=== PATIENT | male | born 1955 | race African-American/Black ===

== ENCOUNTER 2016-12-02 21:30 | Inpatient (IN) | payer MEDICAID ==
[2016-12-02] MEDS ORDERED: Aspirin 81mg Chewable Tab PO STA (21:57)
[2016-12-02] MEDS ORDERED: Aspirin 81mg Chewable Tab ONE (22:24)
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
[2016-12-02] MEDS ORDERED: NITROGLYCERIN SPRAY 4.9 GM SL STA (22:47)
[2016-12-02] MEDS ORDERED: NITROGLYCERIN SPRAY 4.9 GM SL ONE (23:13)
[2016-12-02 23:59] LABS: % EOSINOPHILS 1.6 % (0.0-5.0); % LYMPHOCYTES 28.8 % (20.0-50.0); % MONOCYTES 6.3 % (2.0-10.0); % NEUTROPHILS 62.3 % (40.0-80.0); HEMATOCRIT 31.4 % (39.0-49.0); HEMOGLOBIN 9.9 gm/dL (13.2-17.3); MEAN CELL VOLUME 73.9 fl (80-99); MEAN CORPUSCULAR HEMOGLOBIN 23.3 pg (26.0-30.0); MEAN CORPUSCULAR HGB CONC 31.6 pg (28.0-36.0); MEAN PLATELET VOLUME 6.9 fl; NEUTROPHILE ABSOLUTE 3.7 Th/cmm (1.8-8.0); PLATELET COUNT 304 Th/cmm (150-400); RED BLOOD COUNT 4.25 Mil/cmm (4.30-5.70); RED CELL DISTRIBUTION WIDTH 21.2 % (11.5-20.0); WHITE BLOOD COUNT 6.1 Th/cmm (4.8-10.8)
[2016-12-03 00:06] LABS: ALB/GLOB RATIO 1.2 (1.0-1.8); ALKALINE PHOSPHATASE 162 U/L (34-104); ANION GAP 11.8 (7.0-16.0); BILIRUBIN,TOTAL 0.3 mg/dL (0.3-1.0); BUN - UREA NITROGEN 13 mg/dL (7-25); CALCIUM SERUM 9.3 mg/dL (8.6-10.3); CARBON DIOXIDE 24.7 mEq/L (21.0-31.0); CHLORIDE 104 mEq/L (98-107); GLUCOSE 200 mg/dL (70-105); POTASSIUM SERUM 3.5 mEq/L (3.5-5.1); SGOT 14 U/L (13-39); SGPT/ALT 8 U/L (7-52); SODIUM SERUM 137 mEq/L (136-145)
[2016-12-03 07:08] LABS: CHOLESTEROL 100 mg/dL (<200); TRIGLYCERIDES 168 mg/dL (<150)
[2016-12-03] MEDS ORDERED: Pneumococcal Vaccine 0.5 mL Vial IM ONE (09:00)
[2016-12-03] MEDS ORDERED: Ferrous Sulfate 325 MG TAB PO SCH (09:00)
[2016-12-03] MEDS: Aspirin 81mg Chewable Tab PO SCH (10:02)
[2016-12-03] MEDS: Atorvastatin Calcium 10 MG TAB PO SCH (10:02)
[2016-12-03] MEDS: Pantoprazole 40 mg EC Tab PO SCH (10:03)
[2016-12-03 10:52] LABS: ABG SOURCE Arterial; BE(B) 2.1 mmol/L (-3.0-3.0); HCO3 25.3 mmol/L (20.0-26.0); pH 7.48 (7.35-7.45)
[2016-12-03 10:53] LABS: FIO2 21
[2016-12-03] MEDS ORDERED: VTE Chemical Prophylaxis Screen/Admission MC PRN (11:52)
--- NOTE | 2016-12-03 11:58 | Diagnostic Imaging Report ---
Portable chest x-ray HISTORY: Pain The heart size appears generous. Cardiac pacemaker lead wires project over the right atrium and right ventricle. No acute focal pulmonary processes. Surgical suture material noted over the mid chest. IMPRESSION: 1. No acute pulmonary processes 2. Cardiac pacemaker placement along with surgical changes
--- NOTE | 2016-12-03 12:02 | Diagnostic Imaging Report ---
Left lower extremity Doppler venous ultrasound exam HISTORY: Pain/swelling Sonographic sector images were obtained through the deep venous systems of the left leg. Associated Doppler data was obtained. The exam demonstrates patency of the common femoral, superficial femoral, popliteal, and posterior tibial veins. Specifically, no thrombus is seen. There are normal compressibility and augmentation responses. IMPRESSION: Negative exam for deep vein thrombophlebitis.
[2016-12-03] MEDS: Ferrous Sulfate 325 MG TAB PO SCH ×2 (14:30→17:31)
[2016-12-03] MEDS: Morphine Sulfate 4 mg/mL 1mL Syr IVP PRN ×2 (17:32→23:50)
--- NOTE | 2016-12-04 01:41 | Admit Criteria Form ---
Admit Criteria Forms - Admit Criteria Diagnosis: CARDIOLOGY GRG Clinical Indications for Admission to Inpatient Care ( Place 'X' for any and all applicable criteria): Hospital admission is needed for appropriate care of the patient because of ANY ONE of the following (1): [ ] I. Hemodynamic instability as indicated by ALL of the following (1)(2)(3) (4)(5) [ ]a) Vital signs or other findings not as expected for chronic patient condition or baseline [ ]b) Instability indicated by ANY ONE of the following: [ ]i) Hypotension [ ]ii) Symptomatic Tachycardia unresponsive to treatment ( e.g., analgesia, fluids, sedation as indicated) [ ]iii) Inadequate perfusion indicated by ANY ONE of the following: [ ] 1) Lactic acidosis (> 2 mmol/L) [ ] 2) New abnormal capillary refill (> 3 seconds) [ ] 3) Reduced urine output [ ] 4) New altered mental status [ ]iv) Orthostatic vital sign changes unresponsive to treatment (e.g., fluids) [ ]v) IV inotropic or vasopressor medication required to maintain adequate blood pressure or perfusion [ ] II. Severe heart failure as indicated by ANY ONE of the following(17)(18) [ ]a) Respiratory distress [ ]b) Hypotension [ ]c) Anasarca (refractory to outpatient therapy) [ ]d) Cardiac arrhythmias of immediate concern [ ]e) Myocardial ischemia [ ] III. Cardiac arrhythmias or findings of immediate concern indicated by ANY ONE of the following (19)(20): [ ] a) Heart rhythms that are inherently dangerous or unstable indicated by ANY ONE of the following (21)(22)(23): [ ] i) Resuscitated ventricular fibrillation or cardiac arrest [ ] ii) Ventricular escape rhythm [ ] iii) Sustained ventricular tachycardia (30 seconds or more of ventricular rhythm at greater than 100 beats per minute) [ ] iv) Nonsustained ventricular tachycardia and ANY ONE of the following: [ ] 1) Suspected cardiac ischemia as cause or consequence of ventricular tachycardia [ ] 2) In setting of acute myocarditis [ ] b) Unstable cardiac conduction defects indicated by ANY ONE of the following(23)(24)(25) [ ] i) Type II second-degree atrioventricular block [ ]ii) Third-degree atrioventricular block [ ]iii) New-onset left bundle branch block with suspected myocardial ischemia [ ]c) Any heart rhythm and ANY ONE of the following (21)(22)(26)(27) (28) [ ] i) Continuous long-term ECG monitoring needed (e.g., initiation of drug requiring monitoring for more than 24 hours) [ ] ii) Patient has automatic implanted cardioverter defibrillator that is repeatedly firing, malfunctioning, or in need of immediate adjustment of settings beyond the scope of ambulatory or observation care [ ]d) Heart rhythms of concern due to ANY ONE of the following: [ ] i) Hypotension [ ] ii) Respiratory distress [ ] iii) Association with other significant symptoms (e.g., bradycardia with syncope or ongoing dizziness, supraventricular tachycardia with chest pain (14)(15)(17) [ ] IV. Monitoring for cardiac contusion beyond the scope of observation care needed [A](30)(31)(32) [ ] V. Surgical or device complication (e.g., valve replacement complication , pacemaker dysfunction) (35)(41)(44)(45)(46) [ ] . Inpatient palliative care needed. [B](49) Also use Inpatient Palliative Care Criteria [ ] VII. Nonbacterial thrombotic (marantic) endocarditis (36)(43)(47)(48) [X ] VIII. Cardiology condition, symptom, or finding for which emergency and observation care has failed or are not considered appropriate. [ ] IX. Acute valvular disease requiring inpatient as indicated by ANY ONE of the following (41) [ ]a) Acute valvular regurgitation (42) [ ]b) Noninfectious valvulitis (43) [ ]c) Obstructive valve thrombosis [ ]d) Paravalvular leak [ ]e) Other significant valvular disorder remaining after emergency or observation level of care (as appropriate) [ ]X. Pericardial disease requiring inpatient treatment as indicated by ANY ONE of the following (33)(34)(35)(36)(37) [ ]a) Suspected tamponade (38)(39)(40) [ ]b) Hemopericardium [ ]c) Other significant pericardial disorder remaining after emergency or observation level of care (as appropriate) [ ] XI. Cardiac ischemia beyond scope of emergency and observation care. [ ] XII. Hypertension requiring inpatient treatment as indicated by ANY ONE of the following (6)(7)(8) [ ]a) SBP greater than 220 mm Hg or DBP greater than 120 mmHg despite treatment [ ]b) SBP greater than 140 mm Hg or DBP greater than 100 mm Hg with evidence of acute end organ damage as indicated by ANY ONE of the following [ ] i) Altered mental status [ ] ii) Acute renal failure as indicated by new onset of ANY ONE of the following (9)(10)(11)(12)(13) [ ]1) 3-fold rise in serum creatinine from baseline [ ]2) Serum creatinine greater than 4 mg/dL ( 354 micromoles/L) with acute rise greater than 0.5 mg/dL (44.2 micromoles/L) [ ]3) Reduction of more than 75% in estimated glomerular filtration rate from baseline [ ]4) Estimated glomerular filtration rate less than 35 mL/min/1.73m2 (0.59 mL/sec/1.73m2) in child up to 18 years of age [ ]5) Cessation of urine output indicated by ALL of the following [ ]A. Adequate volume status [ ]B. Inadequate urine output as indicated by ANY ONE of the following [ ]a. Urine output less than 0.3 mL/kg/hr for 24 hours [ ]b. Anuria (urine output less than 0.1 mL/kg/hr) for 12 hours [ ] iii) Aortic dissection [ ] iv) Myocardial Ischemia [ ] v) Left ventricular heart failure [ ]vi) Retinal Hemorrhage [ ]vii) Other significant finding [ ]c) Hypertension in child requiring inpatient treatment as indicated by ALL of the following(14)(15)(16) [ ] i) Outpatient treatment not effective, not available , or not appropriate [ ]ii) SBP or DBP greater than 95th percentile for age [ ]iii) Evidence of acute end organ damage as indicated by ANY ONE of the following [ ]1) Altered mental status [ ]2) Acute renal failure as indicated by new onset of ANY ONE of the following(9)(10)(11)(12)(13) [ ]A. 3-fold rise in serum creatinine from baseline [ ]B. Serum creatinine greater than 4 mg/dL (354 micromoles/L) with acute rise greater than 0.5 mg/dL (44.2 micromoles/L) [ ]C. Reduction of more than 75% in estimated glomerular filtration rate from baseline [ ]D. Estimated glomerular filtration rate less than 35 mL/min/1.73m2 (0.59 mL/sec/1.73m2) in child up to 18 years of age [ ]E. Cessation of urine output indicated by ALL of the following [ ]a. Adequate volume status [ ]b. Inadequate urine output as indicated by ANY ONE of the following [ ]i) Urine output less than 0.3 mL/kg/hr for 24 hours [ ]ii) Anuria ( urine output less than 0.1 mL/kg/hr) for 12 hours [ ]3) Severe headache [ ]4) Visual disturbance [ ]5) Retinal hemorrhage [ ]6) Other significant finding [ ]XIII. Complications of transplanted heart indicated by ANY ONE of the following(61): [ ]a) Acute graft rejection requiring inpatient management (eg, intravenous immunosuppression)(62)(63) [ ]b) Acute graft heart failure indicated by ANY ONE of the following(64): [ ]i) Hemodynamic instability [ ]ii) Cardiac arrhythmias of immediate concern [ ]iii) Pulmonary edema that is very severe (eg, mechanical ventilation needed, imminent or likely, need for 100% oxygen to keep oxygen saturation above 90%) [ ]iv) Pulmonary edema that is persistent as indicated by ALL of the following: [ ]1) New need for oxygen therapy to keep oxygen saturation above 90% (or increased FiO2 need from baseline) [ ]2) Has not improved sufficiently with emergency department or observation care IV diuretics or other heart failure treatments[E] [ ]v) Altered mental status that is severe or persistent [ ]vi) Increased creatinine (new on laboratory test) with reduction of more than 50% in estimated glomerular filtration rate from baseline [ ]vii) Progressively (ongoing) rising creatinine (known from past laboratory test) with reduction of more than 25% in estimated glomerular filtration rate from baseline [ ]viii) Acute renal failure [ ]ix) Acute peripheral ischemia (eg, examination shows pulseless, cool, mottled, or cyanotic extremity) [ ]x) Pulmonary artery catheter monitoring needed [ ]xi) Other sign or symptom of heart failure requiring inpatient treatment (ie, too severe or not responsive to outpatient and observation care treatment) [ ]c) Infection requiring inpatient management (eg, Hemodynamic instability, need for intravenous antimicrobial treatment)(66)(67)(68)(69)(70) [ ]d) Cardiac allograft vasculopathy requiring inpatient management ( eg evidence of cardiac ischemia)(71) [ ]e) Other complication of transplanted heart (eg, stroke, severe pulmonary hypertension, severe valvular dysfunction) requiring inpatient management(72) The original [facility] [employer] content created by [facility] [employer] has been revised. The portions of the content which have been revised are identified through the use of italic text or in bold, and [facility] has neither reviewed nor approved the modified material. All other unmodified content is copyright [facility] [employer]. Please see references footnoted in the original [facility] [employer] edition 2016 Admit Criteria Met?: Yes
[2016-12-04] MEDS: Morphine Sulfate 4 mg/mL 1mL Syr IVP PRN ×3 (06:03→19:39)
[2016-12-04 08:13] LABS: IRON SATURATION 13 % (15-55); TIBC (LCI) 361 ug/dL (250-450); UIBC 313 ug/dL (111-343)
[2016-12-04] MEDS: Ferrous Sulfate 325 MG TAB PO SCH ×2 (08:21→17:45)
[2016-12-04] MEDS: Aspirin 81mg Chewable Tab PO SCH (08:21)
[2016-12-04] MEDS: Pantoprazole 40 mg EC Tab PO SCH (08:21)
[2016-12-04] MEDS: Atorvastatin Calcium 10 MG TAB PO SCH (08:21)
--- NOTE | 2016-12-04 13:29 | Consultation ---
Patient of Dr. Dean Son. HISTORY AND PHYSICAL: This is 61 years old -[place] male patient who has a known history of coronary artery disease with bypass. The patient came to the Emergency Room complaining of chest pain, pressure type, not radiating to the arm or to the neck. PAST MEDICAL HISTORY: Myocardial infarction, coronary artery disease with stent placement and after coronary artery bypass in 1999, CVA with late effect, sick sinus syndrome with pacemaker, hyperlipidemia, obstructive sleep apnea on CPAP machine. FAMILY HISTORY: Unremarkable. SOCIAL HISTORY: No history of smoking, alcohol abuse. ALLERGIES: No known allergies. PHYSICAL EXAMINATION: VITAL SIGNS: Blood pressure 120/82, pulse 78, respirations 28. HEAD: Normocephalic. No lumps or bumps. EYES: Pupils equal, reactive to light. Fundi show AV nicking, sclerae white, conjunctivae pink. NECK: Carotid 2+. Normal upstroke. JVD flat. Thyroid not palpable. Lymph nodes not palpable. CHEST: Shows increased AP diameter. No kyphosis, scoliosis. LUNGS: Bilateral bronchovesicular breath sounds. HEART: PMI in fifth intercostal space with lateral to midclavicular line. S1, S2. No S3, S4. Systolic murmur, grade 2/6, left sternal border without radiation. ABDOMEN: Soft. Liver, spleen not palpable. No organomegaly. Bowel sounds active. NEUROLOGIC: Unremarkable. EXTREMITIES: Peripheral pulses 2+. No pedal edema. CLINICAL IMPRESSION: Chest pain, rule out coronary artery disease, old myocardial infarction, coronary artery bypass, coronary artery disease with stent placement, sick sinus syndrome with pacemaker, hyperlipidemia, and obstructive sleep apnea on CPAP machine. PLAN: We will get troponin level and EKG. Last echocardiogram showed ejection fraction 55%. JOB# [id number]
[2016-12-04 14:24] LABS: FOLIC ACID 18.4 ng/mL (>3.0)
--- NOTE | 2016-12-04 14:57 | Cardiology ---
Patient of Dr. Daen Son. M-MODE ECHOCARDIOGRAM: Mitral valve, anterior leaflets of mitral valve shows normal excursion, EF velocity. Posterior leaflet of the mitral valve shows normal excursion. Left ventricular posterior wall shows increased thickness, normal excursion. Interventricular septum shows increased thickness, normal excursion, hypertrophy of the left ventricle, ejection fraction 50%. Left atrium normal. Aortic root shows normal dimension, normal excursion of aortic leaflets. CONCLUSION: Hypertrophy of the left ventricle, ejection fraction 50%. 2D ECHO: Long axis view showed normal sized left ventricle with hypertrophy of the left ventricle. Left atrium normal. Aortic root shows normal dimension, normal excursion of aortic leaflets. Short axis view of mitral valve normal. Short axis view of aortic valve normal. Apical four chamber view showed normal sized left ventricle with hypertrophy of the left ventricle. Left atrium normal. Right ventricular cavity, right atrium normal, no pericardial effusion. CONCLUSION: Hypertrophy of the left ventricle, ejection fraction 50%. Doppler study shows prominent A wave consistent with poor compliance of left ventricle, mild mitral regurgitation, aortic regurgitation. [facility] [place]# [id number]
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
== END 2016-12-04 20:20 | disposition home health service (06) | DRG 198 ==
LOC: ER 21:30 → TELE 12-03 02:20
PROVIDERS: ADMIT Internal Medicine; ATTEND Internal Medicine
DX: R07.89 Other chest pain (principal); I25.2 Old myocardial infarction; I49.5 Sick sinus syndrome; I25.10 Atherosclerotic heart disease of native coronary artery without angina pectoris; I69.30 Unspecified sequelae of cerebral infarction; H40.9 Unspecified glaucoma; E78.5 Hyperlipidemia, unspecified; G47.33 Obstructive sleep apnea (adult) (pediatric); Z88.2 Allergy status to sulfonamides; Z88.0 Allergy status to penicillin; Z88.8 Allergy status to other drugs, medicaments and biological substances; Z87.891 Personal history of nicotine dependence; Z82.49 Family history of ischemic heart disease and other diseases of the circulatory system; Z95.5 Presence of coronary angioplasty implant and graft; Z95.1 Presence of aortocoronary bypass graft; Z95.0 Presence of cardiac pacemaker
CPT/HCPCS: 36415-UA; 36600-90; 71010-TC; 80053-TC; 80061-TC; 82270-TC; 82607-90; 82746-90; 82803-TC; 83036-90; 83540-90; 83550-90; 83880-TC; 84443-TC; 84484-TC; 85025-TC; 85379-TC; 93005; 93971-TC-LT; 94760; 96374; 96375; J1200; J2270; J2405; Z7610

== ENCOUNTER 2016-12-30 04:35 | Emergency (ER) | payer MEDICAID ==
[2016-12-30] MEDS ORDERED: Aspirin 81mg Chewable Tab PO STA (05:11)
[2016-12-30] MEDS ORDERED: Aspirin 81mg Chewable Tab ONE (05:17)
[2016-12-30 05:29] LABS: HEMATOCRIT 31.6 % (39.0-49.0); HEMOGLOBIN 9.8 gm/dL (13.2-17.3); MEAN CELL VOLUME 73.9 fl (80-99); MEAN CORPUSCULAR HGB CONC 31.1 pg (28.0-36.0); MEAN PLATELET VOLUME 7.9 fl; RED BLOOD COUNT 4.27 Mil/cmm (4.30-5.70); RED CELL DISTRIBUTION WIDTH 19.5 % (11.5-20.0)
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
[2016-12-30 05:34] LABS: PLATELET COUNT 243 Th/cmm (150-400); WHITE BLOOD COUNT 8.2 Th/cmm (4.8-10.8)
[2016-12-30 05:35] LABS: TROP I 0.02 ng/mL (0.01-0.05)
[2016-12-30 05:41] LABS: ALB/GLOB RATIO 1.1 (1.0-1.8); ALKALINE PHOSPHATASE 134 U/L (34-104); ANION GAP 8.5 (7.0-16.0); BILIRUBIN,TOTAL 0.3 mg/dL (0.3-1.0); BUN - UREA NITROGEN 9 mg/dL (7-25); CALCIUM SERUM 8.9 mg/dL (8.6-10.3); CHLORIDE 107 mEq/L (98-107); CHOLESTEROL 139 mg/dL (<200); GLUCOSE 154 mg/dL (70-105); POTASSIUM SERUM 3.5 mEq/L (3.5-5.1); SGOT 18 U/L (13-39); SGPT/ALT 10 U/L (7-52); SODIUM SERUM 137 mEq/L (136-145); TRIGLYCERIDES 169 mg/dL (<150)
[2016-12-30 07:04] LABS: BAND NEUTROPHILE 5 % (0-10); EOSINOPHIL 2 % (0-5); NEUTROPHILS 68 % (40-80); TOTAL CELLS COUNTED 100
[2016-12-30 07:22] LABS: MICROCYTOSIS 2+; PLATELET ESTIMATE ADEQUATE (NORMAL); PLATELET MORPHOLOGY PLATELET CLUMPS SEEN (NORMAL)
== END 2016-12-30 06:05 | disposition left against medical advice (07) ==
LOC: ER 04:35
DX: I20.0 Unstable angina (principal); D64.9 Anemia, unspecified; E78.5 Hyperlipidemia, unspecified; I25.10 Atherosclerotic heart disease of native coronary artery without angina pectoris; Z88.0 Allergy status to penicillin; Z88.8 Allergy status to other drugs, medicaments and biological substances; Z95.0 Presence of cardiac pacemaker; Z95.1 Presence of aortocoronary bypass graft
CPT/HCPCS: 99284; 84484; 83880; 36415; 85007; 85027; 82550; 80053; 80061; Q0162; J2060; Z7502; Z7610